=== PATIENT | female | born 1960 | race Caucasian/White ===

== ENCOUNTER 2019-09-19 16:20 | Outpatient (CLI) | payer OTHER, SELFPAY ==
--- NOTE | ~2019-09-19 | XR_ITS ---
EXAMINATION: XR chest 2V EXAM DATE: 09/19/2019 16:51 INDICATION: Cough. TECHNIQUE: Frontal and lateral projections of the chest obtained and reviewed. Comparison is made to prior examination from 09/12/2004. FINDINGS: The lungs are clear. There are no pleural effusions. The cardiomediastinal silhouette is within normal limits. There is no pneumothorax suspected. Mild thoracic spondylosis. IMPRESSION: No acute cardiopulmonary findings. Reviewed, dictated and finalized at location B. SCOPE TECHNICIAN
== END 2019-09-19 16:21 | disposition home or self-care (01) ==
LOC: ANHIMG 16:24
PROVIDERS: PCP Family Medicine; Visit Provider Family Medicine
DX: R05 Cough (principal)
CPT/HCPCS: 71046

== ENCOUNTER 2020-02-08 15:39 | Outpatient (CLI) | payer OTHER, SELFPAY ==
--- NOTE | ~2020-02-08 | XR_ITS ---
XR shoulder LT min 2V DATE: 02/08/2020 16:45 INDICATION: Left shoulder pain TECHNIQUE: 4 views COMPARISON: None FINDINGS: Diffuse idiopathic skeletal hyperostosis of the thoracic spine. No fracture, dislocation, periosteal reaction or bone destruction or abnormal soft tissue calcificati on. IMPRESSION: No significant abnormality of the left shoulder Reviewed, dictated and finalized at location A.
--- NOTE | ~2020-02-08 | XR_ITS ---
XR_CERV2-3V_CR DATE: 02/08/2020 16:45 INDICATION: Neck pain radiating to left shoulder TECHNIQUE: AP, lateral, swimmer's, open-mouth views COMPARISON: None FINDINGS: C1 and C2 are normally aligned and the odontoid process is intact. No fracture or dislocati on, locked facet or prevertebral soft tissue swelling. There is straightening of the cervical spine. There is mild anterolisthesis at C3-4. There is moderately severe loss of interspace height and posterior spurring at C4-5. There is moderate loss of interspace height at C5-6. There is uncovertebral joint spurring in the mid to lower cervical spine in particular. There is dege nerative change of the apophyseal joints throughout the cervical spine. IMPRESSION: Straightening Degenerative changes Reviewed, dictated and finalized at Location A. Reviewed, dictated and finalized at location A.
== END 2020-02-08 15:40 | disposition home or self-care (01) ==
LOC: ANHIMG 15:46
PROVIDERS: PCP Family Medicine; Visit Provider Physician Assistant
DX: M25.512 Pain in left shoulder (principal); M79.609 Pain in unspecified limb; R20.2 Paresthesia of skin
CPT/HCPCS: 72040; 73030

== ENCOUNTER 2020-03-29 11:17 | Outpatient (CLI) | payer OTHER, SELFPAY ==
--- NOTE | ~2020-03-29 | US_ITS ---
EXAMINATION: US thyroid DATE: 03/29/2020 11:41 INDICATION: Nontoxic single thyroid nodule. TECHNIQUE: Multiple ultrasound images of the thyroid were obtained. COMPARISON: None. FINDINGS: The right thyroid lobe measures 4.3 x 1.8 x 1.5 cm. The left thyroid lobe measures 4.1 x 2.3 x 2.0 c m. In the left thyroid lobe, there is a 17 mm solid, hypoechoic, jznez-cvxh-rzlj nodule with ill-def ined margin without echogenic foci (TI-RADS TR4). IMPRESSION: 1. Left thyroid nodule. Ultrasound-guided fine-needle aspiration is recommended. Reviewed, dictated and finalized at location A. IMPRESSION: 1. Left thyroid nodule. Ultrasound-guided fine-needle aspiration is recommended .
== END 2020-03-29 11:18 | disposition home or self-care (01) ==
PROVIDERS: PCP Family Medicine; Visit Provider Family Medicine
DX: E04.1 Nontoxic single thyroid nodule (principal)
CPT/HCPCS: 76536

== ENCOUNTER 2025-04-12 01:03 | Day surgery (SDC) | payer MEDICARE, SELFPAY ==
[2025-03-28 14:37] VITALS: BMI 56.7
--- OUTSIDE RECORDS SUMMARY | 2025-04-12 01:08 | XMS_ITS | Clinical Summary ---
Author Organization [facility] [id number] [facility] Address [address] [place] [address] Care Team Providers Care Loan Auditor Name Role Phone Harris Carmichael MD Primary Care Provider [phone] Medications verapamiL (VERELAN) 180 mg Sustained Release 24 hour capsule Take 180 mg by mouth daily. Active losartan (COZAAR) 100 mg tablet Take 100 mg by mouth daily. Active hydroCHLOROthiaz rodney 25 mg tablet Take 25 mg by mouth daily. Active citalopram (CeleXA) 20 mg tablet Take 20 mg by mouth daily at bedtime. Active gabapentin (NEURONTIN) 300 mg capsule TAKE 1 CAPSULE(300 MG) BY MOUTH THREE TIMES DAILY 60 Capsule 06/04/2020 Active Active Problems Problem Noted Date Diagnosed Date Cervical spondylosis with radiculopathy 04/13/20 20 Morbid obesity with BMI of 50.0-59.9, adult 03/27 Social History Tobacco Use Types Packs/Day Years Used Date Smoking Tobacco: Never Smokeless Tobacco: Never Tobacco Cessation:Counseling Given: No Alcohol Use Standard Drinks/Week Comments Yes 0 (1 standard drink = 0.6 oz pur e alcohol) Comments Unknown Sex and Gender Information Value Date Recorded Sex Assigned at Not on file Legal Sex Female 10:08 AM CDT Gender Identity Not on file Sexual Orientation Not on file Last Filed Vital Signs Vital Sign Reading Time Taken Comments Blood Pressure - - Pulse - - Temperature - - Respiratory Rate - - Oxygen Saturation - - Inhaled Oxygen Concentration - - Weight 142.9 kg (315 lb) 04/13/2020 3:19 PM CDT Height 162.6 cm (5' 4) 04/13/2020 3:19 PM CDT Body Mass Index 54.07 04/13/2020 3:19 PM CDT Plan of Treatment Health Maintenance Due Date Last Done Comments Pre-Diabetes and Diabetes Screening 1958 DTAP/TDAP/TD VACCINES (1 - Tdap) 1977 BREAST CANCER SCREENING 1998 COLORECTAL SCREENING 2003 Colorectal Cancer Screening 2003 FIT-DNA Q 3 years 2003 FIT/FOBT Q 1 year 2003 Flex Sig/CT Colonography Q 5 years 2003 PNEUMOCOCCAL VACCINE 50+ YEARS (1 of 1 - PCV) 07/05/20 08 ZOSTER VACCINE (1 of 2) 2008 RSV VACCINE (60+ or ) (1 - Risk 60-74 years 1-dose series) 2018 OSTEOPOROSIS SCREENING 2023 INFLUENZA VACCINE (#1) 2025 Insurance Care Teams Loan Auditor Relationship Specialty Start Date End Date Harris Carmichael MD [address] [facility] [address] [place] [address] PCP - General Family Practice 03/28/20
[2025-04-12 12:50] VITALS: BP 158/93; PULSE 91; RESP 20; TEMP 36.3; O2SAT 94; BMI 55.0
[2025-04-12] MEDS: LACTATED RINGERS 1,000 ML 150 ML IV CONT (13:23)
--- NOTE | 2025-04-12 13:49 | PM.HPGS ---
History of Present Illness History of Present Illness Consent: Risks, benefits, and alternatives have been discussed and questions answered. Patient agrees to proceed with procedure. Chief complaint: Other fecal abnormalities Narrative: Allison Malin is a 64 year old female here for first colonoscopy, had positive cologuard Review of Systems Review of Systems: All systems reviewed & are unremarkable except as noted in HPI and below PMFSH Past Medical History Medical History (Updated 04/12/25 @ 14:02 by Kit Donovan MD) Positive colorectal cancer screening using Cologuard test Leukocytosis Neck pain Wellness examination Paresthesia and pain of left extremity Left shoulder pain Sinus congestion Essential hypertension Family History Family History Other Family history of lung cancer Family history of malignant neoplasm of ovary Social History Social History Smoking packs per day: 0 Smoking cigarettes per day: 0.0 Years smoked: 30 Smoking pack-years: 0.00 Smoking status: Former smoker Tobacco type: cigarettes Second hand tobacco smoke exposure: No Smoking end date: 07/27/07 Alcohol intake: current Drinks per week: 7 Substance use: never Substance use type: does not use Living arrangements: with family Occupation/Education: retired Gender identity (if verbalized by the patient): Female Meds Home Medications and Allergies Home Medications ?Medication ?Instructions ?Recorded ?Confirmed ?Type triamcinolone acetonide 0.5 % 1 applic topical BID #15 grams 01/05/24 04/12/25 Rx topical cream diclofenac sodium 75 mg 75 mg PO BID 05/26/24 04/12/25 History tablet,delayed release citalopram 20 mg tablet See Rx Instructions .Route 09/13/24 04/12/25 Rx .COMPLEX #90 tabs losartan 100 mg tablet See Rx Instructions .Route 12/12/24 04/12/25 Rx .COMPLEX #90 tabs verapamil 180 mg tablet,extended 180 mg PO BID #180 tabs 01/06/25 04/12/25 Rx release hydrochlorothiazide 25 mg tablet 25 mg PO DAILY #90 tabs 02/17/25 04/12/25 Rx tramadol 50 mg tablet 50 mg PO Q8H PRN pain #30 tabs 07/25/25 09/02/25 Rx tirzepatide (weight loss) 5 mg/0.5 5 mg (0.5 mL) subcut WEEKLY #2 mL 04/04/25 Rx mL subcutaneous solution (Zepbound) Allergies Allergy/AdvReac Type Severity Reaction Status Date / Time TAMAR Inhibitors Allergy Unknown Cough Verified 04/12/25 12:49 Bjnyvth-GIK-EwZ Reductase Allergy Unknown COUGH Verified 04/12/25 12:49 Inhibitor (Svsoqzg-Cog-Tkh Reductase Inhibitor) Vital Signs Vital Signs - 24 hr 04/12/25 12:50 Temperature 97.3 F L Pulse Rate 91 Respiratory Rate 20 Blood Pressure 158/93 H Pulse Oximetry 94 Oxygen Delivery Room Air Exam Const: General: comfortable and no acute distress HENMT: Face/Nose/Sinus: Normal nares present Eyes: General: appearance normal, both eyes and all related structures Neck: Neck: no JVD Resp: Auscultation: clear to auscultation bilaterally Cardio: Rate: regular rate Rhythm: regular rhythm GI: Inspection: non-distended GI Palp: Yes Soft to palpation Skin: General skin exam: normal color Neuro: Speech: normal speech Extrem: General: normal to inspection Psych: Mental Status: mental status grossly normal Assessment and Plan Assessment and plan (1) Positive colorectal cancer screening using Cologuard test: Code(s): R19.5 - Other fecal abnormalities Status: Acute Assessment and Plan: colonoscopy
[2025-04-12 14:02] VITALS: BP 118/59; PULSE 78; RESP 15; O2SAT 97
[2025-04-12 14:12] VITALS: BP 117/64; PULSE 78; RESP 14; O2SAT 98
[2025-04-12 14:22] VITALS: BP 138/90; PULSE 73; RESP 20; O2SAT 98
--- NOTE | 2025-04-25 13:51 | P.PNAN_ITS ---
Anes - Initial Pre Proc Eval Procedure: Operation Date: 04/12/25 14:00 Proposed Procedures p Diagnostic Colonoscopy - Kit Donovan MD Date/Time: 04/25/25 13:51 Surgeon: Kit Donovan MD Pre Op Diagnosis: Other fecal abnormalities Patient Data Age: 64 Gender: F Height: 1.63 m Weight: 145.6 kg Last Vital Signs Temp 97.3 F L 04/12/25 12:50 Pulse 73 04/12/25 14:22 Resp 20 04/12/25 14:22 BP 138/90 04/12/25 14:22 Pulse Ox 98 04/12/25 14:22 O2 Del Method Room Air 04/12/25 14:22 Allergies Allergy/AdvReac Type Severity Reaction Status Date / Time TAMAR Inhibitors Allergy Unknown Cough Verified 04/12/25 12:49 Rssnjfg-FRK-OzK Reductase Allergy Unknown COUGH Verified 04/12/25 12:49 Inhibitor (Yaplkix-Bgi-Eox Reductase Inhibitor) Home Medications ?Medication ?Instructions ?Recorded ?Confirmed ?Type triamcinolone acetonide 0.5 % 1 applic topical BID #15 grams 01/05/24 04/12/25 Rx topical cream diclofenac sodium 75 mg 75 mg PO BID 05/26/24 History tablet,delayed release losartan 100 mg tablet See Rx Instructions .Route 0 12/12/24 04/12/25 Rx .COMPLEX #90 tabs verapamil 180 mg tablet,extended 180 mg PO BID #180 ta bs 01/06/25 04/12/25 Rx release hydrochlorothiazide 25 mg tablet 25 mg PO DAILY #90 ta bs 02/17/25 04/12/25 Rx tramadol 50 mg tablet 50 mg PO Q8H PRN pain #30 ta bs 02/17/25 03/28/25 Rx tirzepatide (weight loss) 5 mg/0.5 5 mg (0.5 mL) subcu t WEEKLY #2 mL 04/04/25 Rx mL subcutaneous solution (Zepbound) citalopram 20 mg tablet See Rx Instructions .Route 0 04/24/25 Rx .COMPLEX #90 tabs Patient hx anesthesia problems: none Family hx anesthesia problems: none Results Review: All pre-operative results and documents have been reviewed as part of the pre- operative evaluation. [facility] Past Medical History Medical History (Updated 04/12/25 @ 14:02 by Kit Donovan MD) Positive colorectal cancer screening using Cologuard test Leukocytosis Neck pain Wellness examination Paresthesia and pain of left extremity Left shoulder pain Sinus congestion Essential hypertension Family History Family History Other Family history of lung cancer Family history of malignant neoplasm of ovary Social History Social History Smoking packs per day: 0 Smoking cigarettes per day: 0.0 Years smoked: 30 Smoking pack-years: 0.00 Smoking status: Former smoker Tobacco type: cigarettes Second hand tobacco smoke exposure: No Smoking end date: 07/27/07 Alcohol intake: current Drinks per week: 7 Substance use: never Substance use type: does not use Living arrangements: with family Occupation/Education: retired Gender identity (if verbalized by the patient): Female Spiritual care concerns: No Anes - Eval Final PreProcedure Day of Procedure 04/25/25 13:51 Patient weight: morbidly obese Lungs: normal air movement Airway: Mallampati scale class II Neurological: alert and oriented Last oral intake: >/= 8 hours ASA classification: III Emergent: no Anesthetic plan: proceed Anesthesia type and monitoring: general GIVS and standard monitoring Results Review: All pre-operative results and documents have been reviewed as part of the pre- operative evaluation. Informed Consent: The patient's anesthetic plan and its attendant risks and benefits were discussed with the patient/family/POA. Questions were solicited and answers provided to the satisfaction of the patient/family/POA.
== END 2025-04-12 14:35 | disposition home or self-care (01) ==
PROVIDERS: PCP Family Medicine; Referring Provider Family Medicine; Visit Provider Internal Medicine Gastroenterology
PROC: 0DJD8ZZ Inspection of Lower Intestinal Tract, Via Natural or Artificial Opening Endoscopic (ICD-10-PCS; CPT 45378; principal; 2025-04-12 14:00)
DX: R19.5 Other fecal abnormalities (principal); K57.30 Diverticulosis of large intestine without perforation or abscess without bleeding; K64.8 Other hemorrhoids; K64.4 Residual hemorrhoidal skin tags; Z87.891 Personal history of nicotine dependence
CPT/HCPCS: 45378; J2704; J7120